=== PATIENT | male | born 1985 | race Two or more races ===

== ENCOUNTER 2017-06-24 18:40 | Emergency (ER) | payer OTHER ==
[~2017-06-24] VITALS: Ht 182.9 cm; Wt 81.7 kg
--- NOTE | 2017-06-24 20:15 | Urgent Treatment Center Report ---
History of Present Issue Date/Time Seen by Provider 06/24/172013 Visit Reason Pt arrived:Walked Presenting Problem:PT STATES HE FELL 8 FT OUT OF A BARN Location if Accident:Work Onset of symptoms date/time:06/24/17 or onset unknown for: Have you (or family members/close friends) recently traveled outside the [place]? N If Yes, where/when: Have you had exposure to infectious disease within the past month? TB? Other? Specify: Here w/ employer (who is also a friend and neighbor) and also a friend/ co-worker. Employer speaks only [place], pt only guatemalan but friend is bilingual. pt prefers friend to translate despite attempts to use phone delivery professional. refusing delivery professional via phone. c/o left lateral and medial knee pain since falling this afternoon. Fell approx 8 foot off bottom barn rafter. Reports he was standing on raftor housing tobacco when rafter broke. Reports landing on both feet then down to ground. Denies pain anywhere except left knee. no limited ROM and denies N/T. pain 5/10. No treatment prior to arrival. denies pain elsewhere or any skin lesions or discoloration. Source patient, friend, employer Exam Limitations no limitations ALLERGIES Coded Allergies: No Known Allergies (06/24/17) History Medical History General CAD? No Angina: No MS: No Hypertension? No Hyperlipidemia? No CHF? No DVT? No PE? No COPD? No Asthma? No Anemia? No GERD? No Gastric ulcers? No GI Bleed? No Hernia? No Thyroid Problems? No Hypothyroidism? No Seizures? No Diabetes? No UTI? No Stones? No BPH? No GB Disease: No Nephritic Syndrome? No Asplenia? No Hepatitis? No Sickle Cell Disease? No Arthritis? No Migraines? No Cataracts? No Glaucoma? No MRSA? No HIV? No TB? No Anxiety? No Depression? No Cancer? No More? No Immunization HX DT/Tetanus > 10 Years Ago Surgical Hx Previous Surgery?N Social History Smoking Hx Smoker: Never Smoker Tobacco: No Review of Systems All Other Systems Reviewed and Negative Constitutional denies weakness Musculoskeletal see HPI, denies back pain, denies joint swelling, denies muscle pain, denies neck pain, denies other (hip, ankle, foot, rt knee pain) Skin see HPI Psychiatric/Neurological see HPI Physical Exam Vital Signs Vital Signs Date Time Temp Pulse Resp B/P Pulse O2 O2 Flow FiO2 Ox Delivery Rate 06/24 2115 98.8 83 18 137/87 100 06/24 2048 18 06/24 1947 98.8 83 20 137/87 100 General Appearance no apparent distress, obviously came straight from barn Neck normal inspection, non-tender, full range of motion Respiratory Status No: respiratory distress. Cardiovascular no peripheral edema Peripheral Pulses Pulses normal Yes (pt/dp) Back gait abnormality (limp, favoring left), no back or vertebral tenderness Extremities normal inspection (all extremities/joints), no tenderness rachel UES, right LE, left hip, thigh, lower leg, ankle foot, mild tenderness left lateral and medial knee, full ROM w/o complaints of pain Strength 5 Lower Ext (L), 5 Lower Ext (R) Neurologic alert, no motor/sensory deficits Skin intact, normal color, warm/dry Medical Decision Making LABS/Meds/Orders Pt receiving controlled substance in ED? No Results/Orders Current Medication Orders Sig/Johnnie Start time Last Medication Dose Route Stop Time Status Admin Ketorolac 60 MG ONCE ONE 06/24 2045 DC 06/24 Tromethamine IM 06/24 Ketorolac 0 .STK-MED ONE 06/24 2045 DC Tromethamine .ROUTE Orders Procedure Date/time Status STABILIZE JOINT 06/24 2048 Active KNEE-3 VIEWS-LT 06/24 1910 Active XRAY/CT/US XRAY/CT/US XRAY knee (left) XR interpretation by reviewed by me (w/ MACKENZIE Barron MD) Xray Results no acute finding Departure Departure Time of Disposition 2046 Disposition DC Home or Self Care(routine) Clinical Impression Primary Impression: Left knee sprain Qualifiers: Encounter type: initial encounter Involved ligament of knee: unspecified ligament Qualified Code: S83.92XA - Sprain of unspecified site of left knee, initial encounter Secondary Impressions: Fall Qualifiers: Encounter type: initial encounter Qualified Code: W19.XXXA - Unspecified fall, initial encounter Condition STABLE Referrals Benedicto Crespo MD immediately for new or worsening symptoms or if no noticeable improvement in 2-3 days Patient Instructions DI for Knee Sprain, How To Perform RICE (Rest, Ice, Compress, Elevate), How to Use a Knee Immobilizer, How to Use Crutches Additional Instructions * weight bearing as tolerated. If it hurts, don't bear weight and use crutches instead. If no pain, ok to bear weight and walk on it. * Rest * ice 15-20 mins 3-4 times a day *knee immobilizer for support and swelling unless in shower. Be sure not too tight but not too loose either * Elevate as discussed as much as possible to help reduce swelling and therefore , pain * Ibuprofen every 6 hours as needed for pain and inflammation. If you need something more, you can take tylenol every 4 hours as needed as long as your primary care provider has told you it is ok to take both. * * Remember you had a toradol shot, similiar anti-inflammatory in clinic. No ibuprofen for 6 hours Discharge Counseling Counseled pt/family regarding diagnosis, test results, medications/RX, home care, follow up needs Comments Refused crutches at discharge at [id number]
[2017-06-24 21:15] VITALS: BP 137/87
--- NOTE | 2017-06-24 23:43 | RADIOLOGY REPORT PS360 ---
KNEE-3 VIEWS-LT HISTORY: Left knee pain FELL OUT OF BARN AND LANDED ON LEFT KNEE ORDERING PHYSICIAN: FIONA MASTERS APRN PATIENT AGE: 31 years COMPARISON: None FINDINGS: No fracture or dislocation. No lytic or blastic change. Normal mineralization. No significant arthritic changes evident. No other significant findings IMPRESSION: Negative Knee
--- OUTSIDE RECORDS SUMMARY | 2017-07-17 07:47 | External Medical Summary Rpt ---
Demographics Preferred Language Lao Marital Status Unknown Pentecostalism Affiliation Unknown Race Unknown Ethnic Group Unknown Author Author , LIANET MARTINI Address Unknown Phone Immunization Unable to retrieve immunization data due to connection failure with Immunization Registry. Please try again later.
--- OUTSIDE RECORDS SUMMARY | 2017-07-17 07:47 | External Medical Summary Rpt ---
Author Author [employer] Organization [employer] Address Unknown Phone Unavailable Purpose Continuity of Care Document - through 2016
--- OUTSIDE RECORDS SUMMARY | 2017-07-17 07:47 | External Medical Summary Rpt ---
Author Author LIANET Address Unknown Phone [email or web address] Purpose Continuity of Care Document - through 2016
--- OUTSIDE RECORDS SUMMARY | 2017-07-17 07:47 | External Medical Summary Rpt ---
Demographics Preferred Language Arabic Marital Status Unknown Religion Affiliation Unknown Race Unknown Ethnic Group Unknown Author Author , LIANET MARTINI Address Unknown Phone Immunization Unable to retrieve immunization data due to connection failure with Immunization Registry. Please try again later.
--- OUTSIDE RECORDS SUMMARY | 2017-07-17 07:47 | External Medical Summary Rpt ---
Author Author LIANET Address Unknown Phone [email or web address] Purpose Continuity of Care Document - through 2016
== END 2017-06-24 21:15 | disposition home or self-care (01) ==
LOC: UTC 18:40
DX: S83.92XA Sprain of unspecified site of left knee, initial encounter (principal); W13.8XXA Fall from, out of or through other building or structure, initial encounter; Y93.H2 Activity, gardening and landscaping; Y92.71 Barn as the place of occurrence of the external cause; Y99.0 Civilian activity done for income or pay